=== PATIENT | female | born 1995 | race Caucasian/White ===

== ENCOUNTER 2021-07-02 12:24 | Emergency (ER) | payer OTHER ==
[~2021-07-02] VITALS: Ht 165.1 cm; Wt 108.0 kg
[2021-07-02 13:36] LABS: BASOPHILS % (AUTO) 1 % (0-1); EOSINOPHILS % (AUTO) 2 % (1-7); LYMPHOCYTES % (AUTO) 29 % (22-44); MEAN CORPUSCULAR HEMOGLOBIN 30.5 pg (27.0-34.8); MEAN CORPUSCULAR HGB CONC 34.3 g/dL (32.4-35.8); MEAN PLATELET VOLUME 8.1 fL (7.4-10.4); MONOCYTES % (AUTO) 6 % (2-9); NEUTROPHILS % (AUTO) 62 % (42-75); PLATELET COUNT 299 x10^3/uL (130-400); RED BLOOD COUNT 4.78 x10^6/uL (3.82-5.3)
[2021-07-02 13:48] LABS: ALANINE AMINOTRANSFERASE 59 U/L (12-78); ALBUMIN 3.5 g/dL (3.4-5.0); ANION GAP 7 mmol/L (5-15); CALCIUM 9.1 mg/dL (8.5-10.1); CHLORIDE 108 mmol/L (98-107); CREATININE 0.91 mg/dL (0.55-1.02)
[2021-07-02 13:51] LABS: ALKALINE PHOSPHATASE 78 U/L (45-117); BILIRUBIN,TOTAL 0.3 mg/dL (0.2-1.0); TOTAL PROTEIN 7.8 g/dL (6.4-8.2)
[2021-07-02 14:41] LABS: MICROSCOPIC INDICATED
--- NOTE | 2021-07-02 14:48 | NUR ---
supply chain director note: Pt to room from lobby.
--- NOTE | 2021-07-02 15:04 | NUR ---
ED PA AT BEDSIDE FOR EVAL.
--- NOTE | 2021-07-02 15:12 | NUR ---
REPORT TO PT'S PRIMARY RN, LISHA.
[2021-07-02] MEDS ORDERED: ONDANSETRON 2MG/ML, 2ML ONE (15:19)
[2021-07-02] MEDS ORDERED: FAMOTIDINE 20 MG/2 ML ONE (15:20)
[2021-07-02] MEDS ORDERED: FAMOTIDINE 20 MG/2 ML IVPush ONE (15:30)
[2021-07-02] MEDS ORDERED: SODIUM CHLORIDE 0.9% 1,000ML IVBOLUS ONE (15:30)
[2021-07-02] MEDS ORDERED: ONDANSETRON 2MG/ML, 2ML IVPush ONE (15:30)
--- NOTE | 2021-07-02 16:08 | NUR ---
FLOAT RN AT BEDSIDE TO RELIEVE PRIMARY RNLISHA, FOR BREAK. PT REQUESTING MOTRIN FOR PAIN. ED PANINA, MADE AWARE. AWAITING FURTHER ORDERS.
[2021-07-02] MEDS ORDERED: METOCLOPRAMIDE 5 MG/ML, 2ML ONE (16:28)
[2021-07-02] MEDS ORDERED: MORPHINE SULFATE 4 MG/ML, 1ML ONE (16:29)
[2021-07-02] MEDS ORDERED: MORPHINE SULFATE 4 MG/ML, 1ML IVPush PRN (16:30)
[2021-07-02] MEDS ORDERED: METOCLOPRAMIDE 5 MG/ML, 2ML IVPush ONE (16:30)
[2021-07-02 16:39] VITALS: BP 139/90
[2021-07-02] MEDS ORDERED: OMNIPAQUE 350 MG/ML, 150 ML BOTTLE ONE (16:58)
[2021-07-02] MEDS ORDERED: PLEASE ENTER ALLERGIES MC SCH (17:00)
== END 2021-07-02 19:41 | disposition home or self-care (01) ==
LOC: ED 16:23
DX: R10.12 Left upper quadrant pain (principal); Z90.49 Acquired absence of other specified parts of digestive tract
CPT/HCPCS: 36415; 74021; 74177; 76700; 80053; 81001; 83690; 84703; 85025; 87086; 96361; 96374; 96375; 99285; J2270; J2405; J2765; J7030; Q9967